=== PATIENT | male | born 1935 | race Caucasian/White ===

== ENCOUNTER 2018-10-03 05:16 | Emergency (ER) | payer MEDICARE ==
[~2018-10-03] VITALS: Ht 182.9 cm; Wt 97.0 kg
[~2018-10-03 05:16] MED LIST: BISO10TA6 PO; NOR5T PO; PANT40TA39 PO; POTA20LI CORPAK; QUIN40TA24 PO
[2018-10-03 06:15] LABS: BASOPHILS # (AUTO) 0.1 X10'3 (0-0.2); BASOPHILS % (AUTO) 0.6 % (0-1); EOSINOPHILS # (AUTO) 0.6 X10'3 (0-0.9); EOSINOPHILS % (AUTO) 6.6 % (0-6); HEMATOCRIT 42.7 % (42.0-52.0); HEMOGLOBIN 14.6 g/dl (14.0-17.9); LYMPHOCYTES # (AUTO) 1.4 X10'3 (1.1-4.8); LYMPHOCYTES % (AUTO) 16.5 % (21-51); MEAN CORPUSCULAR HEMOGLOBIN 30.4 PG (27.0-31.0); MEAN CORPUSCULAR HGB CONC 34.1 % (33.0-36.5); MEAN CORPUSCULAR VOLUME 88.9 FL (78-98); MEAN PLATELET VOLUME 7.8 FL (7.4-10.4); MONOCYTES # (AUTO) 0.8 X10'3 (0-0.9); MONOCYTES % (AUTO) 9.8 % (2-12); NEUTROPHILS # (AUTO) 5.7 X10'3 (1.8-7.7); NEUTROPHILS % (AUTO) 66.5 % (42-75); PLATELET COUNT 227 X10'3 (140-440); RED CELL DISTRIBUTION WIDTH 14.1 % (11.5-14.5); WHITE BLOOD COUNT 8.5 X10'3 (4.5-11.0)
[2018-10-03 06:39] LABS: ALANINE AMINOTRANSFERASE 20 U/L (12-78); ALBUMIN 3.7 G/DL (3.4-5.0); ALBUMIN/GLOBULIN RATIO 1.1 (1.1-1.5); ALKALINE PHOSPHATASE 63 IU/L (46-116); ANION GAP 22 (8-16); ASPARTATE AMINO TRANSFERASE 18 U/L (10-37); BILIRUBIN,TOTAL 0.4 MG/DL (0.1-1.0); BLOOD UREA NITROGEN 132 MG/DL (7-18); BUN/CREATININE RATIO 14.1 (5.4-32.0); CALCIUM 9.2 MG/DL (8.5-10.1); CHLORIDE 103 MMOL/L (99-107); CREATININE 9.36 MG/DL (0.60-1.10); GLUCOSE 112 MG/DL (70-104); INR 1.1 INR; PARTIAL THROMBOPLASTIN TIME 30 SECONDS (22-32); POTASSIUM 5.6 MMOL/L (3.5-5.1); PROTHROMBIN TIME 11.3 SECONDS (9.0-12.0); SODIUM 141 MMOL/L (135-145); TOTAL CARBON DIOXIDE 16.4 MMOL/L (24-32); TOTAL PROTEIN 7.2 G/DL (6.4-8.2); eGFR 5 ML/MIN
[2018-10-03 06:40] LABS: CREATINE KINASE 167 U/L (39-308); ETHANOL < 0.010 GM/DL (0.0-0.010); MAGNESIUM 2.8 MG/DL (1.5-2.4)
[2018-10-03 06:45] LABS: ACETAMINOPHEN < 2.0 UG/ML (10-30)
[2018-10-03] MEDS ORDERED: sodium polystyrene sulfonate 15gm/60ml oral suspension PO ONE (07:10)
[2018-10-03 07:28] LABS: PHOSPHORUS 10.2 MG/DL (2.3-4.5)
[2018-10-03 08:05] LABS: LACTIC SEPSIS 0.5 MMOL/L (0.4-2.0)
[2018-10-03 08:08] LABS: CLARITY,URINE CLEAR (Clear); COLOR,URINE YELLOW (Yellow); GLUCOSE, URINE NEGATIVE (Neg); KETONES,URINE NEGATIVE (Neg); LEUKOCYTE ESTERASE ,URINE SMALL (Neg); NITRITES, URINE NEGATIVE (Neg); OCCULT BLOOD,URINE LARGE (Neg); PROTEIN,URINE NEGATIVE (Neg); UROBILINOGEN,URINE 0.2 E.U/dL (0.2-1.0)
[2018-10-03 08:09] LABS: UA COLLECTION TYPE STRAIGHT CATH
[2018-10-03 08:16] LABS: RBC,URINE TNTC /HPF (0-2); WBC,URINE 20-30 /HPF (0-4)
[2018-10-03 08:17] LABS: BACTERIA,URINE NONE SEEN /HPF (Neg); SQUAMOUS EPITHELIAL CELL,UR FEW /LPF (FEW)
[2018-10-03 08:19] LABS: URINE AMPHETAMINE SCREEN NEGATIVE (Neg); URINE BARBITUATE SCREEN NEGATIVE (Neg); URINE BENZODIAZEPINES SCREEN NEGATIVE (Neg); URINE CANNABINOID SCREEN NEGATIVE (Neg); URINE COCAINE SCREEN NEGATIVE (Neg); URINE METHADONE SCREEN NEGATIVE (Neg); URINE OPIATE SCREEN NEGATIVE (Neg); URINE PHENCYCLIDINE SCREEN NEGATIVE (Neg)
[2018-10-03] MEDS ORDERED: normal saline 1000ML IV soln IVB ONE (08:20)
[2018-10-03] MEDS ORDERED: CefTRIAXone/D5W-Rocephin 1gm 50 ML IV ONE (08:30)
[2018-10-03] MEDS ORDERED: LORazepam 2 mg/ml vial IV ONE (09:40)
[2018-10-03] MEDS ORDERED: ondansetron/PF 4mg/2ml inj IV ONE (09:40)
[2018-10-03] MEDS ORDERED: morphine 4 MG/ML inj SYRINge IV ONE (09:40)
[2018-10-03 10:24] LABS: ALBUMIN 3.6 G/DL (3.4-5.0); ANION GAP 19 (8-16); BLOOD UREA NITROGEN 119 MG/DL (7-18); BUN/CREATININE RATIO 16.2 (5.4-32.0); CALCIUM 9.1 MG/DL (8.5-10.1); CHLORIDE 110 MMOL/L (99-107); CREATININE 7.34 MG/DL (0.60-1.10); GLUCOSE 108 MG/DL (70-104); POTASSIUM 4.7 MMOL/L (3.5-5.1); SODIUM 146 MMOL/L (135-145); TOTAL CARBON DIOXIDE 16.9 MMOL/L (24-32); eGFR 7 ML/MIN
[2018-10-03] MEDS ORDERED: normal saline 1000ml 1,000 ML IV ONE (16:24)
[2018-10-03] MEDS ORDERED: dexamethasone sod phosphate 10mg/ml inj IV STA (16:55)
[2018-10-03] MEDS ORDERED: CefTRIAXone 2gm/D5W 50ml 50 ML IV ONE (17:25)
[2018-10-03 19:21] VITALS: BP 144/76
== END 2018-10-03 19:24 | disposition short-term general hospital (02) ==
LOC: ER 05:17
DX: I63.81 Other cerebral infarction due to occlusion or stenosis of small artery (principal); M48.56XA Collapsed vertebra, not elsewhere classified, lumbar region, initial encounter for fracture; N17.9 Acute kidney failure, unspecified; R32 Unspecified urinary incontinence; E87.5 Hyperkalemia; N39.0 Urinary tract infection, site not specified; I10 Essential (primary) hypertension; G89.29 Other chronic pain; Z90.49 Acquired absence of other specified parts of digestive tract; Z88.1 Allergy status to other antibiotic agents; Z79.899 Other long term (current) drug therapy
CPT/HCPCS: 36415; 51702; 70450; 70551; 71045; 80048; 80053; 80305; 80320; 80329; 81001; 82140; 82550; 83605; 83735; 84443; 84484; 85025; 85610; 85730; 87040; 87088; 87186; 93005; 96365; 96366; 96375; 99291; J0696; J1100; J2060; J2270; J2405; J7030; 84100; P9612

== ENCOUNTER 2018-12-28 23:35 | Emergency (ER) | payer MEDICARE ==
[~2018-12-28] VITALS: Ht 185.4 cm; Wt 80.0 kg
[2018-12-28 23:40] VITALS: BP 160/86
--- NOTE | 2018-12-29 01:26 | NUR ---
DR CASTILLO AT BEDSIDE WITH PT
[2018-12-29 02:29] LABS: CLARITY,URINE CLOUDY (Clear); COLOR,URINE YELLOW (Yellow); GLUCOSE, URINE NEGATIVE (Neg); KETONES,URINE NEGATIVE (Neg); LEUKOCYTE ESTERASE ,URINE SMALL (Neg); NITRITES, URINE POSITIVE (Neg); OCCULT BLOOD,URINE MODERATE (Neg); PROTEIN,URINE 30 mg/dl (Neg); UROBILINOGEN,URINE 0.2 E.U/dL (0.2-1.0)
[2018-12-29 02:34] LABS: UA COLLECTION TYPE FOLEY CATH
[2018-12-29 02:35] LABS: WBC,URINE TNTC /HPF (0-4)
[2018-12-29 02:36] LABS: BACTERIA,URINE 4+ /HPF (Neg); SQUAMOUS EPITHELIAL CELL,UR FEW /LPF (FEW); WBC CLUMPS,URINE MANY /HPF (NEGATIVE)
[2018-12-29] MEDS ORDERED: CefTRIAXone 1000mg IM Kit (w/lidocaine diluent) IM ONE (02:45)
[2018-12-29] MEDS ORDERED: cephalexin 250mg capsule PO ONE (02:45)
[2018-12-29] MEDS ORDERED: CEPH250T PO (02:47)
== END 2018-12-29 03:04 | disposition home or self-care (01) ==
LOC: ER 23:35
DX: T83.511A Infection and inflammatory reaction due to indwelling urethral catheter, initial encounter (principal); N39.0 Urinary tract infection, site not specified; R33.9 Retention of urine, unspecified; I10 Essential (primary) hypertension; G89.29 Other chronic pain; Z90.49 Acquired absence of other specified parts of digestive tract; Z88.1 Allergy status to other antibiotic agents; Z79.899 Other long term (current) drug therapy
CPT/HCPCS: 51702; 81001; 87077; 87088; 87186; 96372; 99284; J0696

== ENCOUNTER 2019-06-24 11:14 | Inpatient (IN) | payer MEDICARE ==
[~2019-06-24] VITALS: Ht 185.4 cm; Wt 90.9 kg
[~2019-06-24 11:14] MED LIST changes: +CEPH250T PO; -POTA20LI CORPAK; +POTA20LI5 CORPAK
[2019-06-24 11:44] LABS: BASOPHILS # (AUTO) 0.1 X10'3 (0-0.2); EOSINOPHILS # (AUTO) 0.3 X10'3 (0-0.9); EOSINOPHILS % (AUTO) 3.8 % (0-6); HEMATOCRIT 39.5 % (42.0-52.0); HEMOGLOBIN 13.6 g/dl (14.0-17.9); LYMPHOCYTES # (AUTO) 1.6 X10'3 (1.1-4.8); LYMPHOCYTES % (AUTO) 17.1 % (21-51); MEAN CORPUSCULAR HEMOGLOBIN 29.1 PG (27.0-31.0); MEAN CORPUSCULAR HGB CONC 34.5 g/dL (33.0-36.5); MEAN CORPUSCULAR VOLUME 84.4 FL (78-98); MEAN PLATELET VOLUME 6.9 FL (7.4-10.4); MONOCYTES # (AUTO) 1.2 X10'3 (0-0.9); MONOCYTES % (AUTO) 12.9 % (2-12); NEUTROPHILS % (AUTO) 65.2 % (42-75); PLATELET COUNT 345 X10'3 (140-440); RED BLOOD COUNT 4.67 X10'6 (4.70-6.10); RED CELL DISTRIBUTION WIDTH 14.2 % (11.5-14.5); WHITE BLOOD COUNT 9.1 X10'3 (4.5-11.0)
[2019-06-24 11:51] LABS: ALANINE AMINOTRANSFERASE 25 U/L (12-78); ALBUMIN 2.8 G/DL (3.4-5.0); ALBUMIN/GLOBULIN RATIO 0.7 (1.1-1.5); ALKALINE PHOSPHATASE 64 IU/L (46-116); ANION GAP 10 (8-16); ASPARTATE AMINO TRANSFERASE 20 U/L (10-37); BILIRUBIN,TOTAL 0.7 MG/DL (0.1-1.0); BLOOD UREA NITROGEN 29 MG/DL (7-18); BUN/CREATININE RATIO 24.6 (5.4-32.0); CALCIUM 9.2 MG/DL (8.5-10.1); CHLORIDE 105 MMOL/L (99-107); CREATININE 1.18 MG/DL (0.60-1.10); GLUCOSE 96 MG/DL (70-104); POTASSIUM 3.3 MMOL/L (3.5-5.1); SODIUM 141 MMOL/L (135-145); TOTAL PROTEIN 6.7 G/DL (6.4-8.2); eGFR 59 ML/MIN
[2019-06-24 11:52] LABS: PARTIAL THROMBOPLASTIN TIME 43 SECONDS (22-32)
[2019-06-24 13:07] LABS: CLARITY,URINE CLOUDY (Clear); COLOR,URINE YELLOW (Yellow); GLUCOSE, URINE NEGATIVE (Neg); KETONES,URINE NEGATIVE (Neg); LEUKOCYTE ESTERASE ,URINE LARGE (Neg); NITRITES, URINE POSITIVE (Neg); OCCULT BLOOD,URINE MODERATE (Neg); PH,URINE 5.5 (4.8-8.0); PROTEIN,URINE 30 mg/dl (Neg); UA COLLECTION TYPE FOLEY CATH; UROBILINOGEN,URINE 0.2 E.U/dL (0.2-1.0)
[2019-06-24 13:13] LABS: WBC,URINE TNTC /HPF (0-4)
[2019-06-24 13:14] LABS: AMORPHOUS URATES 1+; BACTERIA,URINE 2+ /HPF (Neg); COARSE GRANULAR CAST 0-3 /LPF (NEGATIVE); MUCUS STRANDS FEW /LPF (Neg); SQUAMOUS EPITHELIAL CELL,UR NONE SEEN /LPF (FEW); TRANSITIONAL EPI CELLS,URINE FEW /HPF; WBC CLUMPS,URINE MANY /HPF (NEGATIVE)
[2019-06-24] MEDS ORDERED: CefTRIAXone 2gm/D5W 50ml 50 ML IV ONE (14:00)
[2019-06-24] MEDS ORDERED: mag hydrox/Alum hydrox/simeth 30ml oral suspension PO PRN (14:15)
[2019-06-24] MEDS ORDERED: potassium Cl 20 mEq SR tablet PO PRN (14:15)
[2019-06-24] MEDS ORDERED: magnesium 4gm in 100ml NS 100 ML IV PRN (14:15)
[2019-06-24] MEDS ORDERED: acetaminophen 325mg tablet PO PRN ×2 (14:15)
[2019-06-24] MEDS ORDERED: bisacodyl 10mg suppository rectal RC PRN (14:15)
[2019-06-24] MEDS ORDERED: magnesium Cl slow-release 64mg tablet PO PRN (14:15)
[2019-06-24] MEDS ORDERED: potassium CL 10mEq/100ml bag 100 ML IV PRN ×2 (14:15)
[2019-06-24] MEDS ORDERED: magnesium 2GM in 50ml NS 50 ML IV PRN (14:15)
[2019-06-24] MEDS ORDERED: docusate sod 100mg capsule PO PRN (14:15)
[2019-06-24] MEDS: normal saline 1000ml 1,000 ML IV SCH (14:33)
[2019-06-24] MEDS ORDERED: APIX5TAB3 PO (14:35)
[2019-06-24] MEDS ORDERED: IBUP-1984 PO (14:35)
[2019-06-24] MEDS ORDERED: DICL100G15 TOP (14:35)
[2019-06-24] MEDS ORDERED: TRAM50TA2 PO (14:35)
[2019-06-24] MEDS ORDERED: TELM40TA2 PO (14:35)
[2019-06-24] MEDS ORDERED: ROSU40TA PO (14:35)
[2019-06-24 19:30] VITALS: BP 123/55
[2019-06-24] MEDS: DICLOFENAC SODIUM 1% TOP SCH (20:00)
[2019-06-24] MEDS: apixaban 5mg tablet PO SCH (20:59)
[2019-06-24] MEDS: amLODIPine 5mg tablet PO SCH (21:00)
[2019-06-24] MEDS: atenolol 50mg tablet PO SCH (21:01)
[2019-06-24] MEDS: traMADol 50MG tablet PO SCH (21:05)
[2019-06-24] MEDS: potassium Cl 20 mEq SR tablet PO PRN (22:51)
[2019-06-25] VITALS: BP 158/75
[2019-06-25] MEDS: DICLOFENAC SODIUM 1% TOP SCH ×4 (02:00→20:00)
[2019-06-25 05:12] LABS: BASOPHILS # (AUTO) 0.1 X10'3 (0-0.2); BASOPHILS % (AUTO) 0.6 % (0-1); EOSINOPHILS % (AUTO) 0.3 % (0-6); HEMATOCRIT 41.1 % (42.0-52.0); LYMPHOCYTES # (AUTO) 0.9 X10'3 (1.1-4.8); LYMPHOCYTES % (AUTO) 7.3 % (21-51); MEAN CORPUSCULAR HEMOGLOBIN 28.8 PG (27.0-31.0); MEAN CORPUSCULAR HGB CONC 33.9 g/dL (33.0-36.5); MEAN CORPUSCULAR VOLUME 84.9 FL (78-98); MEAN PLATELET VOLUME 7.7 FL (7.4-10.4); MONOCYTES # (AUTO) 0.9 X10'3 (0-0.9); MONOCYTES % (AUTO) 7.4 % (2-12); NEUTROPHILS # (AUTO) 10.1 X10'3 (1.8-7.7); NEUTROPHILS % (AUTO) 84.4 % (42-75); PLATELET COUNT 327 X10'3 (140-440); RED BLOOD COUNT 4.85 X10'6 (4.70-6.10)
[2019-06-25 05:23] LABS: ALANINE AMINOTRANSFERASE 22 U/L (12-78); ALBUMIN 2.8 G/DL (3.4-5.0); ALBUMIN/GLOBULIN RATIO 0.7 (1.1-1.5); ALKALINE PHOSPHATASE 65 IU/L (46-116); ANION GAP 12 (8-16); ASPARTATE AMINO TRANSFERASE 22 U/L (10-37); BILIRUBIN,TOTAL 0.6 MG/DL (0.1-1.0); BLOOD UREA NITROGEN 21 MG/DL (7-18); BUN/CREATININE RATIO 21.2 (5.4-32.0); CALCIUM 9.3 MG/DL (8.5-10.1); CHLORIDE 106 MMOL/L (99-107); CHOL/HDL RATIO 2.5 (0.00-4.99); CHOLESTEROL 81 MG/DL (0-200); CREATININE 0.99 MG/DL (0.60-1.10); GLUCOSE 151 MG/DL (70-104); HDL CHOLESTEROL 32 MG/DL (35-60); LDL CHOLESTEROL 41 MG/DL (50-100); MAGNESIUM 2.1 MG/DL (1.5-2.4); POTASSIUM 3.4 MMOL/L (3.5-5.1); SODIUM 141 MMOL/L (135-145); TOTAL CARBON DIOXIDE 23.2 MMOL/L (24-32); TRIGLYCERIDES 45 MG/DL (20-135); eGFR 72 ML/MIN
[2019-06-25] MEDS: normal saline 1000ml 1,000 ML IV SCH (06:09)
[2019-06-25 06:30] VITALS: BP 137/69
--- NOTE | 2019-06-25 06:35 | NUR ---
Patient in room [facility]. I have received report from DOROTHY Martinez and had the opportunity to ask questions and assume patient care.
[2019-06-25] MEDS: K and/or MAG REPLACEMENT MC SCH (07:21)
[2019-06-25] MEDS ORDERED: enoxaparin 40mg/0.4ml syringe SQ SCH (08:00)
[2019-06-25] MEDS: CefTRIAXone/D5W-Rocephin 1gm 50 ML IV SCH (09:02)
[2019-06-25] MEDS: losartan 50mg tablet PO SCH (09:03)
[2019-06-25] MEDS: traMADol 50MG tablet PO SCH ×3 (09:03→20:26)
[2019-06-25] MEDS: apixaban 5mg tablet PO SCH ×2 (09:03→20:23)
[2019-06-25] MEDS: atorvastatin 20mg tablet PO SCH (09:04)
[2019-06-25] MEDS: potassium Cl 20 mEq SR tablet PO PRN ×3 (09:10→17:35)
[2019-06-25 11:30] VITALS: BP 131/60
[2019-06-25] MEDS ORDERED: magnesium hydroxide 30ml (MOM) UD suspension PO ONE (15:20)
--- NOTE | 2019-06-25 18:35 | NUR ---
Problems reprioritized. Patient report given, questions answered & plan of care reviewed with Katheryn Campa RN.
--- NOTE | 2019-06-25 18:40 | NUR ---
Patient in room [facility]. I have received report from ALEXEY DE LA CRUZ and had the opportunity to ask questions and assume patient care.
[2019-06-25 20:00] VITALS: BP 150/79
[2019-06-25] MEDS: lactobacillus rhamnosus 10,000 MMU CELLS/CAPSULE PO SCH (20:23)
[2019-06-25] MEDS: amLODIPine 5mg tablet PO SCH (20:24)
[2019-06-25] MEDS: atenolol 50mg tablet PO SCH (20:24)
[2019-06-25] MEDS: ondansetron/PF 4mg/2ml inj IV PRN (20:33)
[2019-06-26] VITALS: BP 145/73
[2019-06-26] MEDS: DICLOFENAC SODIUM 1% TOP SCH ×4 (02:00→21:34)
--- NOTE | 2019-06-26 06:00 | NUR ---
Patient in room [facility]. I have received report from Anayeli DE LA CRUZ and had the opportunity to ask questions and assume patient care.
[2019-06-26 06:13] LABS: BASOPHILS # (AUTO) 0.1 X10'3 (0-0.2); BASOPHILS % (AUTO) 0.6 % (0-1); EOSINOPHILS # (AUTO) 0.2 X10'3 (0-0.9); EOSINOPHILS % (AUTO) 1.3 % (0-6); HEMOGLOBIN 13.7 g/dl (14.0-17.9); LYMPHOCYTES # (AUTO) 1.5 X10'3 (1.1-4.8); LYMPHOCYTES % (AUTO) 10.6 % (21-51); MEAN CORPUSCULAR HEMOGLOBIN 28.8 PG (27.0-31.0); MEAN CORPUSCULAR HGB CONC 34.3 g/dL (33.0-36.5); MEAN CORPUSCULAR VOLUME 84.1 FL (78-98); MEAN PLATELET VOLUME 7.1 FL (7.4-10.4); MONOCYTES # (AUTO) 1.6 X10'3 (0-0.9); MONOCYTES % (AUTO) 11.3 % (2-12); NEUTROPHILS # (AUTO) 10.7 X10'3 (1.8-7.7); NEUTROPHILS % (AUTO) 76.2 % (42-75); PLATELET COUNT 370 X10'3 (140-440); RED BLOOD COUNT 4.75 X10'6 (4.70-6.10); RED CELL DISTRIBUTION WIDTH 14.3 % (11.5-14.5)
[2019-06-26 06:29] LABS: ALANINE AMINOTRANSFERASE 25 U/L (12-78); ALBUMIN 2.5 G/DL (3.4-5.0); ALBUMIN/GLOBULIN RATIO 0.6 (1.1-1.5); ALKALINE PHOSPHATASE 58 IU/L (46-116); ANION GAP 8 (8-16); ASPARTATE AMINO TRANSFERASE 32 U/L (10-37); BILIRUBIN,TOTAL 0.5 MG/DL (0.1-1.0); BLOOD UREA NITROGEN 19 MG/DL (7-18); BUN/CREATININE RATIO 14.2 (5.4-32.0); CALCIUM 8.9 MG/DL (8.5-10.1); CHLORIDE 108 MMOL/L (99-107); CREATININE 1.34 MG/DL (0.60-1.10); GLUCOSE 112 MG/DL (70-104); MAGNESIUM 2.2 MG/DL (1.5-2.4); POTASSIUM 3.9 MMOL/L (3.5-5.1); SODIUM 142 MMOL/L (135-145); TOTAL CARBON DIOXIDE 25.9 MMOL/L (24-32); TOTAL PROTEIN 6.5 G/DL (6.4-8.2); eGFR 51 ML/MIN
--- NOTE | 2019-06-26 06:30 | NUR ---
Problems reprioritized. Patient report given, questions answered & plan of care reviewed with FRED DE LA CRUZ.
[2019-06-26 07:16] VITALS: BP 146/73
[2019-06-26] MEDS: K and/or MAG REPLACEMENT MC SCH (08:00)
[2019-06-26] MEDS: atorvastatin 20mg tablet PO SCH (08:47)
[2019-06-26] MEDS: lactobacillus rhamnosus 10,000 MMU CELLS/CAPSULE PO SCH ×2 (08:47→21:08)
[2019-06-26] MEDS: apixaban 5mg tablet PO SCH ×2 (08:48→21:08)
[2019-06-26] MEDS: losartan 50mg tablet PO SCH (08:49)
[2019-06-26] MEDS: traMADol 50MG tablet PO SCH ×3 (08:49→21:11)
[2019-06-26] MEDS: CefTRIAXone/D5W-Rocephin 1gm 50 ML IV SCH (08:50)
[2019-06-26] MEDS ORDERED: lactulose 20gm/30ml cup PO ONE (10:15)
[2019-06-26] MEDS ORDERED: mineral oil 133ml enema RC PRN (10:15)
[2019-06-26 11:00] VITALS: BP 151/88
[2019-06-26] MEDS: ondansetron/PF 4mg/2ml inj IV PRN (12:19)
[2019-06-26] MEDS ORDERED: HYDROmorphone 1 mg/ml syringe IV PRN (16:20)
[2019-06-26] MEDS ORDERED: HYDROmorphone inj. 0.5 MG/0.5 ML DISP.SYRIN IV PRN (16:20)
--- NOTE | 2019-06-26 18:45 | NUR ---
Patient in room [facility]. I have received report from FRED DE LA CRUZ and had the opportunity to ask questions and assume patient care.
--- NOTE | 2019-06-26 19:21 | NUR ---
Problems reprioritized. Patient report given, questions answered & plan of care reviewed with Anayeli DE LA CRUZ.
[2019-06-26 20:00] VITALS: BP 131/71
[2019-06-26] MEDS: metoclopramide 5 mg/ml inj IV SCH (21:08)
[2019-06-26] MEDS: amLODIPine 5mg tablet PO SCH (21:09)
[2019-06-26] MEDS: atenolol 50mg tablet PO SCH (21:10)
[2019-06-27] VITALS: BP 127/69
[2019-06-27] MEDS: DICLOFENAC SODIUM 1% TOP SCH ×3 (02:27→14:18)
[2019-06-27] MEDS: metoclopramide 5 mg/ml inj IV SCH ×3 (02:29→14:18)
[2019-06-27 05:57] LABS: BASOPHILS # (AUTO) 0.1 X10'3 (0-0.2); BASOPHILS % (AUTO) 0.5 % (0-1); EOSINOPHILS # (AUTO) 0.1 X10'3 (0-0.9); EOSINOPHILS % (AUTO) 0.9 % (0-6); HEMATOCRIT 38.6 % (42.0-52.0); HEMOGLOBIN 13.2 g/dl (14.0-17.9); LYMPHOCYTES # (AUTO) 1.5 X10'3 (1.1-4.8); MEAN CORPUSCULAR HEMOGLOBIN 28.4 PG (27.0-31.0); MEAN CORPUSCULAR HGB CONC 34.1 g/dL (33.0-36.5); MEAN CORPUSCULAR VOLUME 83.4 FL (78-98); MEAN PLATELET VOLUME 6.8 FL (7.4-10.4); MONOCYTES # (AUTO) 1.7 X10'3 (0-0.9); MONOCYTES % (AUTO) 11.5 % (2-12); NEUTROPHILS # (AUTO) 11.6 X10'3 (1.8-7.7); NEUTROPHILS % (AUTO) 77.1 % (42-75); PLATELET COUNT 349 X10'3 (140-440); RED BLOOD COUNT 4.63 X10'6 (4.70-6.10); RED CELL DISTRIBUTION WIDTH 14.2 % (11.5-14.5); WHITE BLOOD COUNT 15.1 X10'3 (4.5-11.0)
[2019-06-27 06:11] LABS: ALANINE AMINOTRANSFERASE 23 U/L (12-78); ALBUMIN 2.3 G/DL (3.4-5.0); ALBUMIN/GLOBULIN RATIO 0.6 (1.1-1.5); ALKALINE PHOSPHATASE 56 IU/L (46-116); ANION GAP 9 (8-16); ASPARTATE AMINO TRANSFERASE 21 U/L (10-37); BILIRUBIN,TOTAL 0.5 MG/DL (0.1-1.0); BLOOD UREA NITROGEN 22 MG/DL (7-18); BUN/CREATININE RATIO 16.8 (5.4-32.0); CALCIUM 8.9 MG/DL (8.5-10.1); CHLORIDE 106 MMOL/L (99-107); CREATININE 1.31 MG/DL (0.60-1.10); GLUCOSE 108 MG/DL (70-104); MAGNESIUM 2.2 MG/DL (1.5-2.4); POTASSIUM 3.7 MMOL/L (3.5-5.1); SODIUM 142 MMOL/L (135-145); TOTAL CARBON DIOXIDE 26.8 MMOL/L (24-32); eGFR 52 ML/MIN
--- NOTE | 2019-06-27 06:30 | NUR ---
Problems reprioritized. Patient report given, questions answered & plan of care reviewed with DENYS DE LA CRUZ AND GUERLINE DE LA CRUZ.
--- NOTE | 2019-06-27 06:56 | NUR ---
Patient in room [facility]. I have received report from Katheryn Campa RN and had the opportunity to ask questions and assume patient care.
[2019-06-27 07:00] VITALS: BP 128/64
[2019-06-27] MEDS: K and/or MAG REPLACEMENT MC SCH (08:00)
[2019-06-27] MEDS: lactobacillus rhamnosus 10,000 MMU CELLS/CAPSULE PO SCH (08:23)
[2019-06-27] MEDS: traMADol 50MG tablet PO SCH ×2 (08:26→13:22)
[2019-06-27] MEDS: atorvastatin 20mg tablet PO SCH (08:27)
[2019-06-27] MEDS: apixaban 5mg tablet PO SCH (08:27)
[2019-06-27] MEDS: losartan 50mg tablet PO SCH (08:27)
[2019-06-27] MEDS: CefTRIAXone/D5W-Rocephin 1gm 50 ML IV SCH (08:28)
[2019-06-27] MEDS ORDERED: LEVO750T21 PO (10:36)
[2019-06-27 13:14] VITALS: BP 118/61
--- NOTE | 2019-06-27 15:14 | NUR ---
Problems reprioritized. Patient report given, questions answered & plan of care reviewed with MARYANNE DE LA CRUZ AT [facility].
== END 2019-06-27 15:10 | DRG 689 ==
LOC: ER 11:15 → SUR 3N 16:06 → CMPBEDREQ 06-25 19:57
PROVIDERS: ADMIT Family Medicine; ATTEND Family Medicine
DX: N39.0 Urinary tract infection, site not specified (principal); G93.41 Metabolic encephalopathy; E87.6 Hypokalemia; E78.5 Hyperlipidemia, unspecified; B96.20 Unspecified Escherichia coli [E. coli] as the cause of diseases classified elsewhere; I10 Essential (primary) hypertension; B95.2 Enterococcus as the cause of diseases classified elsewhere; Z96.649 Presence of unspecified artificial hip joint; Z96.659 Presence of unspecified artificial knee joint; G89.29 Other chronic pain; N13.4 Hydroureter; M54.9 Dorsalgia, unspecified; I48.2 Chronic atrial fibrillation; K59.00 Constipation, unspecified; M21.371 Foot drop, right foot; N28.9 Disorder of kidney and ureter, unspecified; Z79.01 Long term (current) use of anticoagulants; Z80.8 Family history of malignant neoplasm of other organs or systems; Z86.73 Personal history of transient ischemic attack (TIA), and cerebral infarction without residual deficits; Z90.49 Acquired absence of other specified parts of digestive tract; Z79.899 Other long term (current) drug therapy; Z98.1 Arthrodesis status
CPT/HCPCS: 36415; 71045; 72082; 74018; 74176; 80053; 80061; 81001; 83605; 83735; 84145; 84484; 85025; 85610; 85730; 87040; 87077; 87081; 87088; 87186; 93005; 96365; 97110; 97112; 97161; 97530; 97535; 99285; G0378; J0696; J1170; J2405; J2765; J7030

== ENCOUNTER 2019-09-30 21:53 | Inpatient (IN) | payer MEDICARE ==
[~2019-09-30] VITALS: Ht 180.3 cm; Wt 86.4 kg
[~2019-09-30 21:53] MED LIST changes: +APIX5TAB3 PO; -CEPH250T PO; -PANT40TA39 PO; -POTA20LI5 CORPAK; -QUIN40TA24 PO; +ROSU40TA PO; +TELM40TA2 PO; +TRAM50TA2 PO
[2019-09-30] MEDS ORDERED: CefTRIAXone 2gm/D5W 50ml 50 ML IV ONE (22:10)
--- NOTE | 2019-09-30 22:11 | NUR ---
Pt. transferred to CT scan by tech at this time.
[2019-09-30 22:26] LABS: BASOPHILS % (AUTO) 0.6 % (0-1); EOSINOPHILS # (AUTO) 0.3 X10'3 (0-0.9); EOSINOPHILS % (AUTO) 4.7 % (0-6); HEMATOCRIT 35.5 % (42.0-52.0); HEMOGLOBIN 11.9 g/dl (14.0-17.9); LYMPHOCYTES # (AUTO) 1.6 X10'3 (1.1-4.8); LYMPHOCYTES % (AUTO) 23.2 % (21-51); MEAN CORPUSCULAR HEMOGLOBIN 27.1 PG (27.0-31.0); MEAN CORPUSCULAR HGB CONC 33.4 g/dL (33.0-36.5); MEAN CORPUSCULAR VOLUME 81.3 FL (78-98); MEAN PLATELET VOLUME 7.3 FL (7.4-10.4); MONOCYTES # (AUTO) 0.8 X10'3 (0-0.9); MONOCYTES % (AUTO) 10.9 % (2-12); NEUTROPHILS # (AUTO) 4.3 X10'3 (1.8-7.7); NEUTROPHILS % (AUTO) 60.6 % (42-75); PLATELET COUNT 250 X10'3 (140-440); RED BLOOD COUNT 4.37 X10'6 (4.70-6.10); RED CELL DISTRIBUTION WIDTH 18.2 % (11.5-14.5); WHITE BLOOD COUNT 7.1 X10'3 (4.5-11.0)
[2019-09-30 22:27] LABS: CLARITY,URINE CLOUDY (Clear); COLOR,URINE YELLOW (Yellow); GLUCOSE, URINE NEGATIVE (Neg); KETONES,URINE NEGATIVE (Neg); LEUKOCYTE ESTERASE ,URINE MODERATE (Neg); NITRITES, URINE POSITIVE (Neg); OCCULT BLOOD,URINE TRACE-INTACT (Neg); PH,URINE 5.5 (4.8-8.0); PROTEIN,URINE 30 mg/dl (Neg); UROBILINOGEN,URINE 0.2 E.U/dL (0.2-1.0)
[2019-09-30 22:32] LABS: PARTIAL THROMBOPLASTIN TIME 38 SECONDS (22-32)
[2019-09-30 22:35] LABS: ABG BASE EXCESS -0.3 mmol/L (-2.0-3.0); ABG HCO3 23.4 mmol/L (22.0-26.0); ABG OXYGEN SATURATION 96.3 % (95-98); ABG PH (T) 7.443 (7.350-7.450); ABG PO2 (T) 85.8 mmHg (83-108); ALLEN'S TEST Positive; FCOHb 0.1 % (0.5-1.5); FLOW 2 L/min; FMetHb 0.2 % (0.3-1.12); TOTAL HEMOGLOBIN 12.2 G/dl (14.0-17.9)
[2019-09-30 22:38] LABS: ALANINE AMINOTRANSFERASE 32 U/L (12-78); ALBUMIN 2.3 G/DL (3.4-5.0); ALBUMIN/GLOBULIN RATIO 0.6 (1.1-1.5); ALKALINE PHOSPHATASE 75 IU/L (46-116); ANION GAP 7 (8-16); ASPARTATE AMINO TRANSFERASE 35 U/L (10-37); BILIRUBIN,TOTAL 0.3 MG/DL (0.1-1.0); BLOOD UREA NITROGEN 23 MG/DL (7-18); BUN/CREATININE RATIO 19.3 (5.4-32.0); CALCIUM 9.1 MG/DL (8.5-10.1); CHLORIDE 108 MMOL/L (99-107); CREATININE 1.19 MG/DL (0.60-1.10); GLUCOSE 149 MG/DL (70-104); POTASSIUM 3.5 MMOL/L (3.5-5.1); SODIUM 141 MMOL/L (135-145); TOTAL CARBON DIOXIDE 25.7 MMOL/L (24-32); eGFR 58 ML/MIN
[2019-09-30 22:39] LABS: UA COLLECTION TYPE VOIDED
[2019-09-30 22:42] LABS: RBC,URINE 0-2 /HPF (0-2); WBC CLUMPS,URINE MODERATE /HPF (NEGATIVE); WBC,URINE 30-50 /HPF (0-4)
[2019-09-30 22:43] LABS: BACTERIA,URINE 2+ /HPF (Neg)
[2019-09-30 22:44] LABS: MUCUS STRANDS MODERATE /LPF (Neg); SQUAMOUS EPITHELIAL CELL,UR NONE SEEN /LPF (FEW)
[2019-09-30] MEDS ORDERED: QUET25TA34 PO (23:01)
[2019-09-30] MEDS ORDERED: TELM80TA9 PO (23:01)
[2019-09-30] MEDS ORDERED: POTA-82 PO (23:01)
[2019-09-30] MEDS ORDERED: FURO20TA4 PO (23:01)
[2019-09-30] MEDS ORDERED: TRAM50TA2 (23:01)
[2019-09-30] MEDS ORDERED: ondansetron/PF 4mg/2ml inj IV PRN (23:20)
[2019-09-30] MEDS ORDERED: magnesium hydroxide 30ml (MOM) UD suspension PO PRN (23:20)
[2019-09-30] MEDS ORDERED: acetaminophen 325mg tablet PO PRN (23:20)
[2019-09-30] MEDS ORDERED: mag hydrox/Alum hydrox/simeth 30ml oral suspension PO PRN (23:20)
[2019-09-30] MEDS: normal saline 1000ml 1,000 ML IV SCH (23:36)
--- NOTE | 2019-10-01 | NUR ---
PT's spouse reports the patient has been having difficulty with skin breakdown on his buttocks/coccyx and they have been repositioning him to prevent further issues. Pt will be rolled and skin assess with another nurse as soon as possible.
[2019-10-01 00:35] VITALS: BP 125/67
[2019-10-01] MEDS ORDERED: traMADol 50MG tablet PO ONE (00:45)
--- NOTE | 2019-10-01 00:45 | NUR ---
Patient unwilling to cooperate during neuro assessment. His right foot normally has a foot drop and he is unable to ambulate or put weight on his foot. Sit to stand is used to transfer him. Addendum: 10/01/19 at 0238 by Tj Cooley RN Amended: Links added.
--- NOTE | 2019-10-01 01:10 | NUR ---
DURGA DE LA CRUZ, EMILY, NOTIFIED: PER PT , THE PT HAS HAD INCREASED SLURRED SPEECH "THIS EVENING" AND IT BECAME MORE PRONOUNCED AROUND 2100 IN THE ER. RIGHT FACIAL DROOP AT THE MOUTH IS ALSO NOTED, THE STATES THAT THIS WAS ALSO NOTICED BY HER AROUND 2100 THIS EVENING. PER , SHE INFORMED DR CARIAS OF THESE NEURO CHANGES AND AN MRI/MRA IS ORDERED. PER STROKE RN EMILY, NO NEW ORDERS ASIDE FROM A BEDSIDE SWALLOW STUDY AND SHE WILL FOLLOW UP IN THE MORNING.
--- NOTE | 2019-10-01 01:30 | NUR ---
0005:Received report from MIRNA Sargent RN,0030: Patient arrived via gurney, He was screaming and painful when we moved him from the gurney to the bed. I called and got a Tramadol order. Patient was not letting us do a full neuro assessment, refused his oxygen. He did not want to be touched. Tramadol was given and admit information was done while was at the bedside. Patient had calmed down but was falling asleep. 2 RN, skin check has not been done. Everything else was done regarding his admit.
--- NOTE | 2019-10-01 03:34 | NUR ---
Patient arrived with russell in place from home. Addendum: 10/01/19 at 0340 by Tj Cooley RN Amended: Links added.
[2019-10-01 05:43] LABS: BASOPHILS % (AUTO) 0.6 % (0-1); EOSINOPHILS # (AUTO) 0.3 X10'3 (0-0.9); EOSINOPHILS % (AUTO) 5.1 % (0-6); HEMATOCRIT 29.3 % (42.0-52.0); LYMPHOCYTES # (AUTO) 1.5 X10'3 (1.1-4.8); LYMPHOCYTES % (AUTO) 25.3 % (21-51); MEAN CORPUSCULAR HEMOGLOBIN 27.6 PG (27.0-31.0); MEAN CORPUSCULAR HGB CONC 33.9 g/dL (33.0-36.5); MEAN CORPUSCULAR VOLUME 81.3 FL (78-98); MEAN PLATELET VOLUME 7.1 FL (7.4-10.4); MONOCYTES # (AUTO) 0.8 X10'3 (0-0.9); NEUTROPHILS # (AUTO) 3.3 X10'3 (1.8-7.7); PLATELET COUNT 202 X10'3 (140-440); RED BLOOD COUNT 3.61 X10'6 (4.70-6.10); RED CELL DISTRIBUTION WIDTH 18.2 % (11.5-14.5); WHITE BLOOD COUNT 5.9 X10'3 (4.5-11.0)
--- NOTE | 2019-10-01 06:23 | NUR ---
Problems reprioritized. Patient report given, questions answered & plan of care reviewed with DOROTHY Martin.
--- NOTE | 2019-10-01 06:34 | NUR ---
Patient in room [facility]. I have received report from DOROTHY Spencer and had the opportunity to ask questions and assume patient care.
[2019-10-01 07:44] VITALS: BP 122/62
[2019-10-01] MEDS ORDERED: traMADol 50MG tablet PO SCH ×2 (08:00→16:52)
[2019-10-01 08:04] LABS: ALBUMIN 2.1 G/DL (3.4-5.0); ANION GAP 9 (8-16); BLOOD UREA NITROGEN 22 MG/DL (7-18); BUN/CREATININE RATIO 19.6 (5.4-32.0); CALCIUM 8.7 MG/DL (8.5-10.1); CHLORIDE 108 MMOL/L (99-107); CREATININE 1.12 MG/DL (0.60-1.10); GLUCOSE 96 MG/DL (70-104); POTASSIUM 3.2 MMOL/L (3.5-5.1); SODIUM 143 MMOL/L (135-145); TOTAL CARBON DIOXIDE 26.2 MMOL/L (24-32); eGFR 62 ML/MIN
[2019-10-01] MEDS: CefTRIAXone 2gm/D5W 50ml 50 ML IV SCH (08:13)
[2019-10-01] MEDS: atorvastatin 20mg tablet PO SCH (08:17)
[2019-10-01] MEDS: apixaban 5mg tablet PO SCH ×4 (08:22→21:29)
[2019-10-01] MEDS: normal saline 1000ml 1,000 ML IV SCH ×3 (10:26→23:26)
--- NOTE | 2019-10-01 10:45 | NUR ---
Student Medication Administration: For this medication-pass time frame, all medication were reviewed, dispensed, administered and documented per hospital policy by rosanna Lagunarehab nursing tech.
--- NOTE | 2019-10-01 10:45 | NUR ---
Student documentation: I have reviewed and agree with all interventions, assessments performed and documented by Jase, international student advisor.
[2019-10-01 11:00] VITALS: BP 117/71
[2019-10-01] MEDS ORDERED: magnesium Cl slow-release 64mg tablet PO PRN (11:40)
[2019-10-01] MEDS ORDERED: magnesium 4gm in 100ml NS 100 ML IV PRN (11:40)
[2019-10-01] MEDS ORDERED: potassium Cl 20 mEq SR tablet PO PRN (11:40)
[2019-10-01] MEDS: K and/or MAG REPLACEMENT MC SCH ×2 (11:40→20:00)
[2019-10-01] MEDS ORDERED: potassium CL 10mEq/100ml bag 100 ML IV PRN (11:40)
[2019-10-01] MEDS: potassium Cl 20 mEq SR tablet PO PRN ×5 (11:59→21:30)
[2019-10-01 15:15] VITALS: BP 126/69
--- NOTE | 2019-10-01 16:44 | NUR ---
reviewed student nurse charting
--- NOTE | 2019-10-01 16:46 | NUR ---
Problems reprioritized. Patient report given, questions answered & plan of care reviewed with vi. Addendum: 10/01/19 at 1646 by Gordo BUTTS Amended: Links added.
--- NOTE | 2019-10-01 18:29 | NUR ---
Problems reprioritized. Patient report given, questions answered & plan of care reviewed with Katheryn Campa RN.
--- NOTE | 2019-10-01 18:30 | NUR ---
Patient in room [facility]. I have received report from CRIS DE LA CRUZ and had the opportunity to ask questions and assume patient care.
[2019-10-01 20:00] VITALS: BP 139/75
[2019-10-01] MEDS: lactobacillus rhamnosus 10,000 MMU CELLS/CAPSULE PO SCH ×3 (20:00→21:32)
[2019-10-01] MEDS: atenolol 50mg tablet PO SCH ×3 (20:39→21:28)
[2019-10-01] MEDS: amLODIPine 5mg tablet PO SCH ×3 (20:39→21:31)
[2019-10-01] MEDS: QUEtiapine 25mg tablet PO SCH (22:21)
[2019-10-01] MEDS: traMADol 50MG tablet PO PRN (22:21)
[2019-10-02] VITALS: BP 124/69
[2019-10-02 06:25] LABS: BASOPHILS # (AUTO) 0.1 X10'3 (0-0.2); EOSINOPHILS # (AUTO) 0.4 X10'3 (0-0.9); EOSINOPHILS % (AUTO) 6.8 % (0-6); HEMOGLOBIN 10.9 g/dl (14.0-17.9); LYMPHOCYTES # (AUTO) 1.8 X10'3 (1.1-4.8); LYMPHOCYTES % (AUTO) 30.7 % (21-51); MEAN CORPUSCULAR HEMOGLOBIN 27.2 PG (27.0-31.0); MEAN CORPUSCULAR VOLUME 80.2 FL (78-98); MEAN PLATELET VOLUME 7.3 FL (7.4-10.4); MONOCYTES # (AUTO) 0.6 X10'3 (0-0.9); MONOCYTES % (AUTO) 11.2 % (2-12); NEUTROPHILS # (AUTO) 2.9 X10'3 (1.8-7.7); NEUTROPHILS % (AUTO) 50.3 % (42-75); PLATELET COUNT 235 X10'3 (140-440); RED BLOOD COUNT 3.99 X10'6 (4.70-6.10); RED CELL DISTRIBUTION WIDTH 17.9 % (11.5-14.5); WHITE BLOOD COUNT 5.7 X10'3 (4.5-11.0)
--- NOTE | 2019-10-02 06:30 | NUR ---
Problems reprioritized. Patient report given, questions answered & plan of care reviewed with KAVON RN.
[2019-10-02 06:51] LABS: ANION GAP 9 (8-16); BLOOD UREA NITROGEN 15 MG/DL (7-18); BUN/CREATININE RATIO 17.2 (5.4-32.0); CALCIUM 9.2 MG/DL (8.5-10.1); CHLORIDE 109 MMOL/L (99-107); CREATININE 0.87 MG/DL (0.60-1.10); GLUCOSE 89 MG/DL (70-104); POTASSIUM 3.6 MMOL/L (3.5-5.1); SODIUM 142 MMOL/L (135-145); TOTAL CARBON DIOXIDE 23.7 MMOL/L (24-32); eGFR 84 ML/MIN
--- NOTE | 2019-10-02 06:53 | NUR ---
Patient in room [facility]. I have received report from ART DE LA CRUZ and had the opportunity to ask questions and assume patient care.
[2019-10-02 07:19] VITALS: BP 123/63
[2019-10-02 07:25] VITALS: BP 123/68
[2019-10-02] MEDS: CefTRIAXone 2gm/D5W 50ml 50 ML IV SCH (07:58)
[2019-10-02] MEDS: K and/or MAG REPLACEMENT MC SCH ×2 (08:00→19:45)
[2019-10-02] MEDS: QUEtiapine 25mg tablet PO SCH ×2 (08:10→19:33)
[2019-10-02] MEDS: atorvastatin 20mg tablet PO SCH (08:10)
[2019-10-02] MEDS: traMADol 50MG tablet PO PRN ×2 (09:09→19:34)
--- NOTE | 2019-10-02 10:56 | NUR ---
Student Medication Administration: For this medication-pass time frame, all medication were reviewed, dispensed, administered and documented per hospital policy by rosanna Lagunadeputy director of nursing.
--- NOTE | 2019-10-02 10:56 | NUR ---
Student documentation: I have reviewed and agree with all interventions, assessments performed and documented by Jase, licensed nursing assistant.
[2019-10-02 11:04] VITALS: BP 109/50
[2019-10-02 11:26] VITALS: BP 109/50
[2019-10-02] MEDS: normal saline 1000ml 1,000 ML IV SCH (16:46)
--- NOTE | 2019-10-02 18:31 | NUR ---
Problems reprioritized. Patient report given, questions answered & plan of care reviewed with benigno DE LA CRUZ.
--- NOTE | 2019-10-02 18:35 | NUR ---
Patient in room [facility]. I have received report from KAVON DE LA CRUZ and had the opportunity to ask questions and assume patient care.
[2019-10-02] MEDS: lactobacillus rhamnosus 10,000 MMU CELLS/CAPSULE PO SCH (19:33)
[2019-10-02] MEDS: apixaban 5mg tablet PO SCH (19:33)
[2019-10-02] MEDS: atenolol 50mg tablet PO SCH (19:34)
[2019-10-02] MEDS: amLODIPine 5mg tablet PO SCH (19:38)
[2019-10-02 20:00] VITALS: BP 126/67
[2019-10-03] VITALS: BP 124/65
[2019-10-03] MEDS: normal saline 1000ml 1,000 ML IV SCH ×2 (02:06→11:18)
--- NOTE | 2019-10-03 06:21 | NUR ---
Problems reprioritized. Patient report given, questions answered & plan of care reviewed with KAVON RN.
[2019-10-03 06:24] LABS: BASOPHILS # (AUTO) 0.1 X10'3 (0-0.2); BASOPHILS % (AUTO) 0.8 % (0-1); EOSINOPHILS # (AUTO) 0.3 X10'3 (0-0.9); EOSINOPHILS % (AUTO) 4.7 % (0-6); HEMATOCRIT 33.6 % (42.0-52.0); HEMOGLOBIN 11.3 g/dl (14.0-17.9); LYMPHOCYTES # (AUTO) 1.5 X10'3 (1.1-4.8); LYMPHOCYTES % (AUTO) 22.8 % (21-51); MEAN CORPUSCULAR HEMOGLOBIN 27.3 PG (27.0-31.0); MEAN CORPUSCULAR HGB CONC 33.6 g/dL (33.0-36.5); MEAN CORPUSCULAR VOLUME 81.1 FL (78-98); MEAN PLATELET VOLUME 7.3 FL (7.4-10.4); MONOCYTES # (AUTO) 0.7 X10'3 (0-0.9); MONOCYTES % (AUTO) 11.4 % (2-12); NEUTROPHILS # (AUTO) 3.9 X10'3 (1.8-7.7); NEUTROPHILS % (AUTO) 60.3 % (42-75); PLATELET COUNT 243 X10'3 (140-440); RED BLOOD COUNT 4.14 X10'6 (4.70-6.10); WHITE BLOOD COUNT 6.5 X10'3 (4.5-11.0)
[2019-10-03 06:39] LABS: ALBUMIN 2.2 G/DL (3.4-5.0); ANION GAP 10 (8-16); BLOOD UREA NITROGEN 16 MG/DL (7-18); BUN/CREATININE RATIO 18.4 (5.4-32.0); CALCIUM 8.8 MG/DL (8.5-10.1); CHLORIDE 110 MMOL/L (99-107); CREATININE 0.87 MG/DL (0.60-1.10); GLUCOSE 91 MG/DL (70-104); MAGNESIUM 1.8 MG/DL (1.5-2.4); POTASSIUM 3.2 MMOL/L (3.5-5.1); SODIUM 143 MMOL/L (135-145); TOTAL CARBON DIOXIDE 23.4 MMOL/L (24-32); eGFR 84 ML/MIN
--- NOTE | 2019-10-03 06:56 | NUR ---
Patient in room [facility]. I have received report from Anayeli DE LA CRUZ and had the opportunity to ask questions and assume patient care.
[2019-10-03 07:23] VITALS: BP 147/76
[2019-10-03] MEDS: K and/or MAG REPLACEMENT MC SCH (08:00)
[2019-10-03] MEDS: CefTRIAXone 2gm/D5W 50ml 50 ML IV SCH (08:19)
[2019-10-03] MEDS: lactobacillus rhamnosus 10,000 MMU CELLS/CAPSULE PO SCH (08:20)
[2019-10-03] MEDS: apixaban 5mg tablet PO SCH (08:20)
[2019-10-03] MEDS: atorvastatin 20mg tablet PO SCH (08:20)
[2019-10-03] MEDS: QUEtiapine 25mg tablet PO SCH (08:20)
[2019-10-03] MEDS: potassium Cl 20 mEq SR tablet PO PRN (08:21)
[2019-10-03] MEDS: traMADol 50MG tablet PO PRN (08:21)
[2019-10-03 11:00] VITALS: BP 124/67
--- NOTE | 2019-10-03 13:13 | NUR ---
PRESSURE ULCER EDUCATION: DEFINITION: A pressure ulcer is an area of skin that breaks down when you stay in one position too long. The constant pressure against the skin reduces the blood flow to that area and the affected tissue dies. CAUSES: "Being bedridden or in a wheelchair "Fragile skin "Having a chronic condition, such as diabetes or vascular disease "Inability to move certain parts of your body without assistance "Older age "Incontinence of urine or stool SYMPTOMS: "A reddened area that DOES NOT turn white when pressed on - this can be the beginning of a pressure ulcer "A blister, deep sore or a crater - these can be advanced pressure ulcers FIRST AID: "Relieve the pressure on this area "Keep the area clean and dry "Call your primary doctor if you see any of the above symptoms "DO NOT massage the area "DO NOT use a donut shaped or ring shaped pillow- these actually interfere with the blood flow and cause complications PREVENTION: "Check for pressure ulcers everyday "Change position at least every two hours to relieve pressure "Use items that help relieve pressure- pillows, sheepskin, foam padding, and powders. "Keep skin clean and dry "Eat healthy well balanced meals "Exercise daily IF YOU SEE ANY OF THESE SYMPTOMS WHILE IN THE HOSPITAL - TELL YOUR NURSE IMMEDIATELY. IF YOU SEE ANY OF THESE SYMPTOMS WHILE AT HOME OR HAVE ANY QUESTIONS OR CONCERNS ABOUT PRESSURE ULCERS - CALL YOUR PRIMARY DOCTOR IMMEDIATELY. Addendum: 10/03/19 at 1313 by Tanisha Fowler RN Amended: Links added.
--- NOTE | 2019-10-03 15:16 | NUR ---
[facility] in to take patient home after discharge. Patient discharged home via gurney. PIV removed with cannula intact, tele monitor removed as well.
== END 2019-10-03 15:15 | disposition home health service (06) | DRG 71 ==
LOC: ER 21:53 → ED HOLD 23:35 → SUR 3N 10-01 00:30
PROVIDERS: ADMIT Family Medicine; ATTEND Internal Medicine
DX: G93.41 Metabolic encephalopathy (principal); N39.0 Urinary tract infection, site not specified; N17.9 Acute kidney failure, unspecified; R47.81 Slurred speech; F03.90 Unspecified dementia, unspecified severity, without behavioral disturbance, psychotic disturbance, mood disturbance, and anxiety; I12.9 Hypertensive chronic kidney disease with stage 1 through stage 4 chronic kidney disease, or unspecified chronic kidney disease; N18.9 Chronic kidney disease, unspecified; I48.91 Unspecified atrial fibrillation; G89.29 Other chronic pain; M54.9 Dorsalgia, unspecified; M19.012 Primary osteoarthritis, left shoulder; D63.8 Anemia in other chronic diseases classified elsewhere; Z86.73 Personal history of transient ischemic attack (TIA), and cerebral infarction without residual deficits; Z90.49 Acquired absence of other specified parts of digestive tract; Z80.8 Family history of malignant neoplasm of other organs or systems; Z84.0 Family history of diseases of the skin and subcutaneous tissue
CPT/HCPCS: 36415; 36600; 70450; 71045; 73030; 80048; 80053; 81001; 82803; 83605; 83735; 84145; 85018; 85025; 85610; 85730; 87040; 87077; 87081; 87088; 87186; 93005; 93971; 96365; 97161; 97530; 99285; G0378; J0696; J7030